=== PATIENT | male | born 2000 | race African-American/Black ===

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

== ENCOUNTER 2019-06-23 13:07 | Emergency (ER) | payer SELFPAY ==
--- NOTE | 2019-06-23 14:04 | ER Document Report ---
ED Medical Screen (RME) - General Chief Complaint: Nausea Stated Complaint: FLU LIKE SYMPTOMS Time Seen by Provider: 06/23/19 13:57 Primary Care Provider: ARSALAN CASAS MD [Primary Care Provider] - Follow up as needed Mode of Arrival: Ambulatory Information source: Patient Notes: This 19-year-old male presents emergency department with just not feeling right. Patient reports history of asthma when he was younger and herpes now. Denies flare at this time. Denies pain with void. Denies fever and diarrhea but reports he vomited yesterday. Denies cough. Reports he is eating drinking as normal. Patient reports he just does not feel right I have greeted and performed a rapid initial assessment of this patient. A comprehensive ED assessment and evaluation of the patient, analysis of test results and completion of the medical decision making process will be conducted by additional ED providers. Dictation of this chart was performed using voice recognition software; therefore, there may be some unintended grammatical errors. TRAVEL OUTSIDE OF THE [place] IN LAST 30 DAYS: No - Related Data Allergies/Adverse Reactions: salt and vinegar chips Allergy (Uncoded 06/23/19 13:55) slim jims Allergy (Uncoded 06/23/19 13:55) Past Medical History Pulmonary Medical History: Reports: Hx Asthma Neurological Medical History: Reports: Hx Migraine Renal/ Medical History: Denies: Hx Peritoneal Dialysis - Immunizations Immunizations up to date: Yes Hx Diphtheria, Pertussis, Tetanus Vaccination: Yes Physical Exam - Vital signs Vitals: Temp Pulse Resp BP Pulse Ox 98.9 F 111 H 18 149/81 H 96 06/23/19 13:08 06/23/19 13:08 06/23/19 13:08 06/23/19 13:08 06/23/19 13:08 Course - Vital Signs Vital signs: Temp Pulse Resp BP Pulse Ox 98.9 F 111 H 18 149/81 H 96 06/23/19 13:08 06/23/19 13:08 06/23/19 13:08 06/23/19 13:08 06/23/19 13:08 Doctor's Discharge - Discharge Referrals: ARSALAN CASAS MD [Primary Care Provider] - Follow up as needed
[2019-06-23] MEDS ORDERED: NORMAL SALINE 1000 ML 1,000 ML IV ONE (14:14)
[2019-06-23] MEDS ORDERED: ONDANSETRON 4 MG TAB.RAPDIS PO ONE (14:19)
--- NOTE | 2019-06-23 14:34 | ER Document Report ---
HPI - HPI Time Seen by Provider: 06/23/19 13:57 Pain Level: Denies Notes: RME NOTE: This 19-year-old male presents emergency department with just not feeling right. Patient reports history of asthma when he was younger and herpes now. Denies flare at this time. Denies pain with void. Denies fever and diarrhea but reports he vomited yesterday. Denies cough. Reports he is eating drinking as normal. Patient reports he just does not feel right. Past Medical History - General Information source: Patient - Social History Smoking Status: Never Smoker Frequency of alcohol use: Occasional Drug Abuse: None Family History: Reviewed & Not Pertinent Patient has suicidal ideation: No Patient has homicidal ideation: No Pulmonary Medical History: Reports: Hx Asthma Neurological Medical History: Reports: Hx Migraine Renal/ Medical History: Denies: Hx Peritoneal Dialysis - Immunizations Immunizations up to date: Yes Hx Diphtheria, Pertussis, Tetanus Vaccination: Yes Vertical Provider Document - CONSTITUTIONAL Notes: PHYSICAL EXAMINATION: GENERAL: Well-appearing, well-nourished and in no acute distress. HEAD: Atraumatic, normocephalic. EYES: Pupils equal round and reactive to light, extraocular movements intact, sclera anicteric, conjunctiva are normal. ENT: Nares patent, oropharynx clear without exudates. Moist mucous membranes. NECK: Normal range of motion, supple without lymphadenopathy LUNGS: Breath sounds clear to auscultation bilaterally and equal. No wheezes rales or rhonchi. HEART: Regular rate and rhythm without murmurs ABDOMEN: Soft, nontender, nondistended abdomen. No guarding, no rebound. No masses appreciated. Musculoskeletal: Normal range of motion, no pitting or edema. No cyanosis. NEUROLOGICAL: Cranial nerves grossly intact. Normal speech, normal gait. Normal sensory, motor exams PSYCH: Normal mood, normal affect. SKIN: Warm, Dry, normal turgor, no rashes or lesions noted. - INFECTION CONTROL TRAVEL OUTSIDE OF THE [place] IN LAST 30 DAYS: No Course - Re-evaluation Re-evalutation: Patient appears well, nontoxic and is alert and answering all questions. His physical examination is unremarkable. His work-up today as ordered by triage provider has also been unremarkable as outlined below. He likely has a viral illness. All test results were explained to the patient. Laboratory 06/23/19 06/23/19 06/23/19 14:34 14:34 14:34 WBC 8.6 RBC 5.66 H Hgb 16.5 Hct 48.4 MCV 86 MCH 29.2 MCHC 34.2 RDW 13.2 Plt Count 256 Lymph % (Auto) 20.0 Ramsey % (Auto) 7.7 Eos % (Auto) 0.1 Baso % (Auto) 0.4 Absolute Neuts (auto) 6.2 Absolute Lymphs (auto) 1.7 Absolute Monos (auto) 0.7 Absolute Eos (auto) 0.0 Absolute Basos (auto) 0.0 Seg Neutrophils % 71.8 Sodium 140.0 Potassium 4.3 Chloride 101 Carbon Dioxide 28 Anion Gap 11 BUN 10 Creatinine 0.94 Est GFR ( Amer) > 60 Est GFR (MDRD) Non-Af > 60 Glucose 101 Calcium 9.8 Total Bilirubin 0.8 Direct Bilirubin 0.1 Neonat Total Bilirubin Not Reportable Neonat Direct Bilirubin Not Reportable Neonat Indirect Bili Not Reportable AST 15 L ALT 15 Alkaline Phosphatase 58 Total Protein 7.8 Albumin 4.7 Urine Color YELLOW Urine Appearance CLEAR Urine pH 6.0 Ur Specific Inman 1.025 Urine Protein NEGATIVE Urine Glucose (UA) NEGATIVE Urine Ketones NEGATIVE Urine Blood NEGATIVE Urine Nitrite NEGATIVE Urine Bilirubin NEGATIVE Urine Urobilinogen 2.0 H Ur Leukocyte Esterase NEGATIVE Urine WBC (Auto) 1 Urine RBC (Auto) 1 Urine Mucus (Auto) OCC Urine Ascorbic Acid NEGATIVE Influenza A (Rapid) Influenza B (Rapid) 06/23/19 14:34 WBC RBC Hgb Hct MCV MCH MCHC RDW Plt Count Lymph % (Auto) Ramsey % (Auto) Eos % (Auto) Baso % (Auto) Absolute Neuts (auto) Absolute Lymphs (auto) Absolute Monos (auto) Absolute Eos (auto) Absolute Basos (auto) Seg Neutrophils % Sodium Potassium Chloride Carbon Dioxide Anion Gap BUN Creatinine Est GFR ( Amer) Est GFR (MDRD) Non-Af Glucose Calcium Total Bilirubin Direct Bilirubin Neonat Total Bilirubin Neonat Direct Bilirubin Neonat Indirect Bili AST ALT Alkaline Phosphatase Total Protein Albumin Urine Color Urine Appearance Urine pH Ur Specific Inman Urine Protein Urine Glucose (UA) Urine Ketones Urine Blood Urine Nitrite Urine Bilirubin Urine Urobilinogen Ur Leukocyte Esterase Urine WBC (Auto) Urine RBC (Auto) Urine Mucus (Auto) Urine Ascorbic Acid Influenza A (Rapid) NEGATIVE Influenza B (Rapid) NEGATIVE The patient's emergency department workup and current diagnosis were explained to the patient and or family. Follow-up instructions were provided. Medications if prescribed were discussed. Instructions for when to return to the emergency department including specific worrisome symptoms were discussed with the patient and/or family. - Vital Signs Vital signs: Temp Pulse Resp BP Pulse Ox 98.9 F 111 H 18 149/81 H 96 06/23/19 13:08 06/23/19 13:08 06/23/19 13:08 06/23/19 13:08 06/23/19 13:08 - Laboratory Result Diagrams: 06/23/19 14:34 06/23/19 14:34 Discharge - Discharge Clinical Impression: Viral illness Condition: Stable Disposition: HOME, SELF-CARE Instructions: Viral Syndrome ([facility]) Additional Instructions: Your work-up here in the emergency department today was unremarkable. Please use the Zofran that I have prescribed for nausea or vomiting. Please drink plenty of fluids to stay hydrated. Please follow-up with your primary care provider or [facility] if your symptoms persist. Return to the emergency department with any new or worsening symptoms. Prescriptions: Ondansetron [Zofran Odt 4 mg Tablet] 1 - 2 tab PO Q4H PRN #15 tab.rapdis PRN Reason: For Nausea/Vomiting Referrals: ARSALAN CASAS MD [Primary Care Provider] - Follow up as needed
[2019-06-23 14:52] LABS: ABSOLUTE LYMPHOCYTES (AUTO) 1.7 10^3/uL (0.5-4.7); ABSOLUTE MONOCYTES (AUTO) 0.7 10^3/uL (0.1-1.4); ABSOLUTE NEUT (AUTO) 6.2 10^3/uL (1.7-8.2); BASOPHILS % (AUTO) 0.4 % (0-2); EOSINOPHILS % (AUTO) 0.1 % (0-6); HEMATOCRIT 48.4 % (37.9-51.0); HEMOGLOBIN 16.5 g/dL (13.5-17.0); MEAN CORPUSCULAR HEMOGLOBIN 29.2 pg (27.0-33.4); MEAN CORPUSCULAR HGB CONC 34.2 g/dL (32.0-36.0); MEAN CORPUSCULAR VOLUME 86 fl (80-97); MONOCYTES % (AUTO) 7.7 % (3-13); PLATELET COUNT 256 10^3/uL (150-450); RED BLOOD COUNT 5.66 10^6/uL (4.35-5.55); RED CELL DISTRIBUTION WIDTH 13.2 % (11.5-14.0); SEGMENTED NEUTROPHILS % (AUTO) 71.8 % (42-78); TOTAL CELLS COUNTED % (AUTO) 100 %; WHITE BLOOD COUNT 8.6 10^3/uL (4.0-10.5)
[2019-06-23 14:55] LABS: APPEARANCE,URINE CLEAR; BILIRUBIN,URINE NEGATIVE (NEGATIVE); COLOR,URINE YELLOW; GLUCOSE, URINE NEGATIVE (NEGATIVE); KETONES,URINE NEGATIVE (NEGATIVE); LEUKOCYTE ESTERASE,URINE NEGATIVE (NEGATIVE); NITRITE,URINE NEGATIVE (NEGATIVE); PROTEIN,URINE NEGATIVE (NEGATIVE); URINE SPECIFIC GRAVITY 1.025
[2019-06-23 15:18] LABS: ALBUMIN 4.7 g/dL (3.5-5.0); ALKALINE PHOSPHATASE 58 U/L (38-126); ANION GAP 11 (5-19); ASPARTATE AMINO TRANSFERASE 15 U/L (17-59); BILIRUBIN,DIRECT 0.1 mg/dL (0.0-0.4); BILIRUBIN,TOTAL 0.8 mg/dL (0.2-1.3); BLOOD UREA NITROGEN 10 mg/dL (7-20); CALCIUM 9.8 mg/dL (8.4-10.2); CARBON DIOXIDE 28 mmol/L (22-30); CHLORIDE 101 mmol/L (98-107); GLUCOSE 101 mg/dL (75-110); POTASSIUM 4.3 mmol/L (3.6-5.0)
[2019-06-23 15:19] LABS: TOTAL PROTEIN 7.8 g/dL (6.3-8.2)
[2019-06-23 16:03] LABS: A TYPE INFLUENZA AG NEGATIVE (NEGATIVE); B INFLUENZA AG NEGATIVE (NEGATIVE)
[2019-06-23 16:16] VITALS: BP 124/74
== END 2019-06-23 16:22 | disposition home or self-care (01) ==
LOC: ER 13:07
DX: B34.9 Viral infection, unspecified (principal); J45.909 Unspecified asthma, uncomplicated
CPT/HCPCS: 36415; 85025; 80053; 81001; 87804; S0119; 99283

== ENCOUNTER 2019-11-11 13:16 | Emergency (ER) | payer BC ==
--- NOTE | 2019-11-11 14:11 | ER Document Report ---
ED Medical Screen (RME) - General Chief Complaint: STD Exposure Stated Complaint: STD CHECK Time Seen by Provider: 11/11/19 14:08 Primary Care Provider: ARSALAN CASAS MD [Primary Care Provider] - Follow up as needed Notes: 19-year-old male presents with chest pain and testicular swelling/pain. Patient states chest pain and dyspnea is been ongoing since around Cesario time. Patient also says associated nausea. Patient also is complaining of testicular swelling/pain for the past month. Patient states he does not know if it is an STD but states he was checked a couple months ago and was told he was negative for any STDs and states he has not had any sexual intercourse since then. Genital exam deferred in triage. Lungs clear to auscultation bilaterally. Regular rate and rhythm. I have greeted and performed a rapid initial assessment of this patient. A comprehensive ED assessment and evaluation of the patient, analysis of test results and completion of the medical decision making process with be conducted by additional ED providers. TRAVEL OUTSIDE OF THE [place] IN LAST 30 DAYS: No - Related Data Allergies/Adverse Reactions: salt and vinegar chips Allergy (Uncoded 06/23/19 13:55) slim jims Allergy (Uncoded 06/23/19 13:55) Past Medical History Pulmonary Medical History: Reports: Hx Asthma Neurological Medical History: Reports: Hx Migraine Renal/ Medical History: Denies: Hx Peritoneal Dialysis - Immunizations Immunizations up to date: Yes Hx Diphtheria, Pertussis, Tetanus Vaccination: Yes Physical Exam - Vital signs Vitals: Temp Pulse Resp BP Pulse Ox 98.9 F 73 16 133/71 H 96 11/11/19 13:11/11/19 13:11/11/19 13:11/11/19 13:11/11/19 13:27 Course - Vital Signs Vital signs: Temp Pulse Resp BP Pulse Ox 98.9 F 73 16 133/71 H 96 11/11/19 13:11/11/19 13:11/11/19 13:27 11/11/19 13:27 11/11/19 13:27 Doctor's Discharge - Discharge Referrals: ARSALAN CASAS MD [Primary Care Provider] - Follow up as needed
--- NOTE | 2019-11-11 15:11 | RADIOLOGY REPORT (SQ) ---
EXAM DESCRIPTION: CHEST 2 VIEWS COMPLETED DATE/TIME: 11/11/2019 2:54 pm REASON FOR STUDY: chest pain COMPARISON: None. EXAM PARAMETERS: NUMBER OF VIEWS: Two views. TECHNIQUE: PA and lateral views of the chest were obtained.. RADIATION DOSE: NA LIMITATIONS: none FINDINGS: LUNGS AND PLEURA: No consolidation, pleural effusion or pneumothorax. MEDIASTINUM AND HILAR STRUCTURES: No mediastinal or hilar contour abnormality. HEART AND VASCULAR STRUCTURES: The cardiac silhouette and pulmonary vasculature are within normal romo its. BONES: No acute findings. HARDWARE: None in the chest. OTHER: No other finding. IMPRESSION: No acute cardiopulmonary process. TECHNICAL DOCUMENTATION: JOB ID: [id number] 2010 [employer]- All Rights Reserved Reading location - IP/workstation name: [email or web address]
[2019-11-11 15:46] LABS: ABSOLUTE LYMPHOCYTES (AUTO) 2.1 10^3/uL (0.5-4.7); ABSOLUTE MONOCYTES (AUTO) 0.6 10^3/uL (0.1-1.4); ABSOLUTE NEUT (AUTO) 3.5 10^3/uL (1.7-8.2); BASOPHILS % (AUTO) 0.4 % (0-2); EOSINOPHILS % (AUTO) 0.3 % (0-6); HEMATOCRIT 44.8 % (37.9-51.0); HEMOGLOBIN 15.9 g/dL (13.5-17.0); LYMPHOCYTES % (AUTO) 33.7 % (13-45); MEAN CORPUSCULAR HEMOGLOBIN 29.8 pg (27.0-33.4); MEAN CORPUSCULAR HGB CONC 35.5 g/dL (32.0-36.0); MEAN CORPUSCULAR VOLUME 84 fl (80-97); MONOCYTES % (AUTO) 9.2 % (3-13); PLATELET COUNT 227 10^3/uL (150-450); RED BLOOD COUNT 5.32 10^6/uL (4.35-5.55); RED CELL DISTRIBUTION WIDTH 12.6 % (11.5-14.0); SEGMENTED NEUTROPHILS % (AUTO) 56.4 % (42-78); TOTAL CELLS COUNTED % (AUTO) 100 %; WHITE BLOOD COUNT 6.2 10^3/uL (4.0-10.5)
[2019-11-11 15:52] LABS: APPEARANCE,URINE CLEAR; BILIRUBIN,URINE NEGATIVE (NEGATIVE); COLOR,URINE YELLOW; GLUCOSE, URINE NEGATIVE (NEGATIVE); KETONES,URINE NEGATIVE (NEGATIVE); PROTEIN,URINE NEGATIVE (NEGATIVE); URINE SPECIFIC GRAVITY 1.026; UROBILINOGEN,URINE NEGATIVE mg/dL (<2.0)
[2019-11-11 16:00] LABS: ALBUMIN 4.5 g/dL (3.5-5.0); ALKALINE PHOSPHATASE 48 U/L (38-126); ANION GAP 10 (5-19); ASPARTATE AMINO TRANSFERASE 19 U/L (17-59); BILIRUBIN,DIRECT 0.1 mg/dL (0.0-0.4); BILIRUBIN,TOTAL 0.8 mg/dL (0.2-1.3); BLOOD UREA NITROGEN 15 mg/dL (7-20); CALCIUM 9.5 mg/dL (8.4-10.2); CARBON DIOXIDE 27 mmol/L (22-30); CHLORIDE 101 mmol/L (98-107); GLUCOSE 121 mg/dL (75-110); POTASSIUM 4.1 mmol/L (3.6-5.0); TOTAL PROTEIN 7.8 g/dL (6.3-8.2)
[2019-11-11 16:06] LABS: URINE AMPHETAMINES SCREEN NEGATIVE; URINE BARBITURATES SCREEN NEGATIVE; URINE BENZODIAZEPINES SCREEN NEGATIVE; URINE COCAINE SCREEN NEGATIVE; URINE MARIJUANA (THC) SCREEN NEGATIVE; URINE METHADONE SCREEN NEGATIVE; URINE PHENCYCLIDINE SCREEN NEGATIVE
--- NOTE | 2019-11-11 16:35 | RADIOLOGY REPORT (SQ) ---
EXAM DESCRIPTION: U/S SCROTUM W/DOPPLER COMPLETED DATE/TIME: 11/11/2019 4:21 pm REASON FOR STUDY: testicular swelling/pain COMPARISON: None. TECHNIQUE: Static and realtime lafleur scale imaging of the scrotum and testes. Selected color Doppler and spectral images recorded to document blood flow. LIMITATIONS: None. FINDINGS: RIGHT: TESTICLE: The right testicle measures 4.5 x 2.1 x 4 cm. The echotexture of the testicular parenchyma is homogeneous and on Doppler there is intact arterial inflow and venous outflow within it. There i s no testicular mass. EPIDIDYMIS: Normal. HYDROCELE OR VARICOCELE: No. HERNIA OR EXTRA-TESTICULAR MASS: No. OTHER: No other finding. LEFT: TESTICLE: The left testicle measures 4.5 x 1.8 x 3.6 cm. The echotexture of the testicular parenchym a is homogeneous and on Doppler there is intact arterial inflow and venous outflow within it. There is no testicular mass. EPIDIDYMIS: Normal. HYDROCELE OR VARICOCELE: No. HERNIA OR EXTRA-TESTICULAR MASS: No. OTHER: No other finding. IMPRESSION: 1. No testicular mass or evidence for testicular torsion. 2. No epididymitis. 3. No hydrocele or varicocele. TECHNICAL DOCUMENTATION: JOB ID: [id number] 2010 [employer]- All Rights Reserved Reading location - IP/workstation name: [email or web address]
--- NOTE | 2019-11-11 17:09 | ER Document Report ---
ED Cardiac - General Chief Complaint: Chest Pain Stated Complaint: STD CHECK Time Seen by Provider: 11/11/19 14:08 Primary Care Provider: ARSALAN CASAS MD [Primary Care Provider] - Follow up as needed Mode of Arrival: Ambulatory Information source: Patient TRAVEL OUTSIDE OF THE [place] IN LAST 30 DAYS: No - HPI Notes: Patient presents with complaints of chest pain and scrotal pain. He states he has had these pains since 2 months ago. They occur randomly and are not related that he knows of. For the chest pain he denies any trauma. He states he has had a little bit of a nonproductive cough and some congestion. He denies any fever. He has no previous history of asthma or lung disease. He has had no significant shortness of breath. He states he currently does not have any chest pain. When he gets the pain it is mild and in the center. It occurs briefly. It is a pressure sensation and does not radiate. Patient states he is also had scrotal pain intermittently. He states it is bilateral and random. Nothing makes it better or worse. It does not radiate. He has no pain with urination. No abdominal pain vomiting or diarrhea. He states he is concerned that he may have a 60 transmitted disease. He has not noticed any rashes or sores. - Related Data Allergies/Adverse Reactions: salt and vinegar chips Allergy (Uncoded 06/23/19 13:55) slim jims Allergy (Uncoded 06/23/19 13:55) Past Medical History - General Information source: Patient - Social History Smoking Status: Never Smoker Frequency of alcohol use: Social Drug Abuse: None Family History: Reviewed & Not Pertinent Patient has suicidal ideation: No Patient has homicidal ideation: No Pulmonary Medical History: Reports: Hx Asthma Neurological Medical History: Reports: Hx Migraine Renal/ Medical History: Denies: Hx Peritoneal Dialysis - Immunizations Immunizations up to date: Yes Hx Diphtheria, Pertussis, Tetanus Vaccination: Yes Review of Systems - Review of Systems Constitutional: denies: Chills, Fever Cardiovascular: Chest pain. denies: Palpitations Respiratory: Cough. denies: Short of breath -: Yes All other systems reviewed and negative Physical Exam - Vital signs Vitals: Temp Pulse Resp BP Pulse Ox 98.9 F 73 16 133/71 H 96 11/11/19 13:27 11/11/19 13:27 11/11/19 13:27 11/11/19 13:27 11/11/19 13:27 - Genitourinary Inspection: Normal Tenderness: Nontender Scrotum: Normal Course - Re-evaluation Re-evalutation: 11/11/19 17:06 Patient presents with chest pain and scrotal pain. No obvious source of the pain is found. No evidence of infection. No evidence of sex transmitted disease. Patient has unremarkable work-up and exam with unremarkable vitals. - Vital Signs Vital signs: Temp Pulse Resp BP Pulse Ox 98.9 F 73 16 133/71 H 96 11/11/19 13:27 11/11/19 13:27 11/11/19 13:27 11/11/19 13:27 11/11/19 13:27 - Laboratory Result Diagrams: 11/11/19 15:25 11/11/19 15:25 Laboratory results interpreted by me: 11/11/19 15:25 Glucose 121 H - Diagnostic Test Radiology reviewed: Image reviewed, Reports reviewed - EKG Interpretation by Ne EKG shows normal: Sinus rhythm Rate: Normal - 82 Rhythm: NSR [place]/QRS: No: Right axis deviation, Left axis deviation Discharge - Discharge Clinical Impression: Scrotal pain Chest pain Qualifiers: Chest pain type: unspecified Qualified Code(s): R07.9 - Chest pain, unspecified Condition: Stable Disposition: HOME, SELF-CARE Instructions: Chest Pain of Unclear Cause ([facility]) Forms: Return to Work Referrals: ARSALAN CASAS MD [Primary Care Provider] - Follow up in 1 week
[2019-11-11 17:14] LABS: CHLAM PCR NOT DETECTED (NOT DETECT)
[2019-11-11 17:17] VITALS: BP 125/70
--- NOTE | 2019-11-11 20:28 | EKG REPORT ---
SEVERITY:- OTHERWISE NORMAL ECG - SINUS ARRHYTHMIA, RATE 70-94 : Confirmed by: Joss Anna MD 11-Nov-2019 20:27:45
== END 2019-11-11 17:25 | disposition home or self-care (01) ==
LOC: ER 13:16
DX: R07.9 Chest pain, unspecified (principal); N50.82 Scrotal pain; R05 Cough
CPT/HCPCS: 36415; 71046; 76870; 80053; 80307; 81001; 84484; 85025; 87491; 87591; 93005; 93010; 93976; 99285